=== PATIENT | female | born 1950 | race Caucasian/White ===

== ENCOUNTER 2021-09-25 02:45 | Day surgery (SDC) | payer MEDICARE, OTHER, SELFPAY ==
--- NOTE | 2021-09-20 12:30 | PC.NURSE ---
Report to the Outpatient Waiting Room, entrance under the green pavilion located off [facility], at time 1200 on date _09/25/21 . OR Time: __1400 . - You will be asked a series of questions to screen for COVID 19 for your protection. - A mask is required within the hospital. - No visitors are allowed at this time. Preoperative COVID Testing Requirements: No COVID Test needed if: (proof is required; if not received patient will have Rapid Test prior to entry) - Patient has received COVID Vaccine at least 14 days prior to procedure date or - Patient has positive COVID test result within last 90 days of surgery date. COVID Test needed if above criteria is not met If not COVID vaccinated a COVID test must be conducted within 72 hours of surgery and patient is asked to isolate self from time of testing until procedure. You will go to the [facility] for your COVID testing. The [facility] site is located at the corner of [address] [facility]. You will only be called if COVID results are positive and your surgeon may reschedule your elective surgery date. Patients may have clear liquids (water, carbonated beverages, clear teas, apple juice) until 3 hours prior to surgery with a maximum of 20 ounces. - No food from midnight until time of surgery - Infants may have breast milk until 4 hours before surgery, formula 6 hours prior to surgery. - Children will be allowed to drink immediately following surgery. If applicable, please bring a bottle or sippy cup to assist with drinking. Juice, water, soda, and popsicles are readily available. For infants on formula, please bring formula the day of surgery. Pacifiers are allowed. Take the following medications with a SIP of water the morning of surgery: ___NONE Medications to discontinue per physician ALL VITAMINS 3 DAYS PRE OP Date to take last dose_09/21/21 Please no make-up, nail danish, hairspray, perfume, deodorant, or body powder the day of surgery. No jewelry (including any body piercings) or valuables the day of surgery, leave them at home. Please take a shower or bath the night before, or the morning of, surgery with an antibacterial soap. Wear comfortable, loose fitting clothing. Children are encouraged to wear pajamas. - Jewelry must be removed prior to entering the operating room. Rings and piercings that are not removed may be cut off. - The hospital will not accept responsibility for valuables. - Please leave all valuables, including medications, at home the day of surgery. If you are going home after surgery, a licensed tow truck driver must drive you home. - NO public transportation without another adult. - We recommend that an adult stay with you for 24 hours following discharge. - We also recommend that you do not drive, make important decision, drink alcoholic beverages, or take any drugs that were not prescribed by your health care provider for at least 24 hours after your discharge time. Follow any additional instructions given to you from your surgeon. Telephone instructions given to ___PATIENT and asked if any additional questions and then verbalized understanding. Patient advised to call surgeon office or pre surgery nurse liaison [phone] if any additional questions.
[2021-09-20 12:34] VITALS: BMI 19.5
--- NOTE | 2021-09-25 08:27 | PM.IMHP ---
H&P: HPI History of Present Illness Date/Time: 09/25/21 08:27 She is coming in for LEEP due to CESAR III on recent cervical biopsy. No complaints Chief Complaint: CESAR III Review of Systems Review of Systems: All systems reviewed & are unremarkable except as noted in HPI and below PMFSH Past Medical History Medical History Abnormal Pap smear of cervix 07/13/20, HPV pos 07/25/21, HPV pos Hypercholesteremia Vaginal delivery x3 Surgical History Surgical History History of bilateral tubal ligation History of breast biopsy 2018, benign Family History Family History Sibling Breast cancer Mother Acute myocardial infarction Father Acute myocardial infarction Social History Social History Smoking status: Never smoker Alcohol intake: never Substance use: never Living arrangements: with family Spiritual care concerns: No Meds Home Medications and Allergies Home Medications Medication Instructions Recorded Confirmed Type calcium carbonate 500 mg calcium 500 mg PO BID 07/13/20 09/21/21 History (1,250 mg) chewable tablet Allergies Allergy/AdvReac Type Severity Reaction Status Date / Time No Known Allergies Allergy Verified 09/21/21 15:03 Exam Const: General: healthy appearing, no acute distress, alert and awake Resp: Auscultation: clear to auscultation bilaterally Cardio: Rate: regular rate Rhythm: regular rhythm GI: Inspection: non-distended GI Palp: Yes Soft to palpation and No Tenderness to palpation present (GI) : Bimanual exam- vagina & uterus: normal bimanual exam, uterine size normal, uterine mobility normal, non-tender and soft Bimanual Exam- Adnexa, other: normal adnexae, no masses and No adnexal tenderness Extrem: General: no pedal edema and no calf tenderness Psych: Mental Status: mental status grossly normal Assessment and Plan Assessment and plan (1) Severe dysplasia of cervix (CESAR III): Code(s): D06.9 - Carcinoma in situ of cervix, unspecified Status: Acute Assessment and Plan: She opted and signed consent after risks, benefits, complications, and alternatives discussed. She expressed understanding and wishes to proceed
[2021-09-25 12:00] VITALS: BP 116/50; PULSE 66; RESP 18; TEMP 37.2; O2SAT 100
[2021-09-25] MEDS: ACETAMINOPHEN 500 MG TABLET 1000 MG PO (12:20)
[2021-09-25] MEDS: LACTATED RINGERS 1,000 ML 30 ML IV CONT (12:28)
--- NOTE | 2021-09-25 12:41 | P.PNAN_ITS ---
Anes - Initial Pre Proc Eval Procedure: Operation Date: 09/25/21 14:00 Proposed Procedures p Loop Electrical Excision Procedure with Top Hat - Karlee Morillo MD Date/Time: 09/25/21 12:41 Surgeon: Karlee Morillo MD Pre Op Diagnosis: CESAR III Patient Data Age: 71 Gender: F Height: 1.52 m Weight: 45.6 kg Last Vital Signs Temp 37.2 C 09/25/21 12:00 Pulse 66 09/25/21 12:00 Resp 18 09/25/21 12:00 BP 116/50 L 09/25/21 12:00 Pulse Ox 100 09/25/21 12:00 Allergies Allergy/AdvReac Type Severity Reaction Status Date / Time No Known Allergies Allergy Verified 09/25/21 12:34 Home Medications Medication Instructions Recorded Confirmed Type calcium carbonate 500 mg calcium 500 mg PO BID 07/13/20 09/25/21 History (1,250 mg) chewable tablet Patient hx anesthesia problems: none Family hx anesthesia problems: none Results Review: All pre-operative results and documents have been reviewed as part of the pre-operative evaluation. 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, HPV pos Hypercholesteremia Vaginal delivery x3 Surgical History Surgical History History of bilateral tubal ligation History of breast biopsy 2018, benign Family History Family History Sibling Breast cancer Mother Acute myocardial infarction Father Acute myocardial infarction Social History Social History Smoking status: Never smoker Alcohol intake: never Substance use: never Living arrangements: with family Spiritual care concerns: No Anes - Eval Final PreProcedure Day of Procedure 09/25/21 12:41 Patient weight: thin Heart: regular rate and rhythm Lungs: clear to auscultation Airway: Mallampati scale class II Neurological: alert and oriented Last oral intake: >/= 8 hours ASA classification: II Emergent: no Anesthetic plan: proceed Anesthesia type and monitoring: general GIVS and standard monitoring Results Review: All pre-operative results and documents have been reviewed as part of the pre-operative evaluation. Informed Consent: The patient's anesthetic plan and its attendant risks and benefits were discussed with the patient/family/POA. Questions were solicited and answers provided to the satisfaction of the patient/family/POA.
--- NOTE | 2021-09-25 13:38 | WPDHPUPDATE1 ---
History and Physical Update Update Date/Time: 09/25/21 13:38 History and Physical has been reviewed, including an updated exam of the patient. There are NO changes in the patient's condition. Risks, benefits, and alternatives have been discussed and questions answered. Patient agrees to proceed with procedure.
--- NOTE | 2021-09-25 13:39 | W.PM.PROC2 ---
Procedure Note - Detailed Date of Procedure 09/25/21 Pre-op Diagnosis CESAR III Post-op Diagnosis same Procedure Performed LEEP Surgeon Karlee Morillo MD Anesthesia MAC Indications CESAR III on recent cervical biopsy Findings normal appearing vagina and cervix Description of Procedure She was taken to the operating room where she was sedated and prepared in the normal sterile fashion in the dorsal lithotomy position. A coated vaginal speculum was placed. A paracervical block was performed with 1% lidocaine. An iodine solution was placed on the cervix to help highlight the borders of the lesion. A 20 mm loop was used to excise a shallow cylindrical specimen from the cervix. A smaller loop was used to perform a top hat procedure removing more of the endocervical canal. The ball cautery was then used to cauterize the entire cervical bed. Monsel's solution was applied to the cervix. Excellent hemostasis was visualized. The speculum was removed from the vagina. She tolerated the procedure well. Sponge, lap, needle, and instrument counts were correct x2. She was taken to the recovery room in stable condition. Estimated Blood Loss 5 Drains No Packing No Pathology yes Complications No immediate complications Condition stable Disposition PACU
[2021-09-25] MEDS: LIDO 1%/EPINEPHRINE 1:100,000 50 ML VIAL 10 ML INFILTRATE (13:40)
[2021-09-25 14:09] VITALS: BP 91/56; PULSE 60; RESP 12; O2SAT 97
[2021-09-25 14:30] VITALS: BP 93/66; PULSE 58; RESP 12
[2021-09-25 15:00] VITALS: BP 102/73; PULSE 58; RESP 12
== END 2021-09-25 15:11 | disposition home or self-care (01) ==
PROVIDERS: PCP Family Medicine; Visit Provider Obstetrics & Gynecology
PROC: 0UBC7ZZ Excision of Cervix, Via Natural or Artificial Opening (ICD-10-PCS; CPT 57522; principal; 2021-09-25 14:00)
DX: N72 Inflammatory disease of cervix uteri (principal); E78.00 Pure hypercholesterolemia, unspecified
CPT/HCPCS: 57522; 88305; A9270; J2250; J2704; J3010; J7120